=== PATIENT | male | born 1985 | race African-American/Black ===

== ENCOUNTER 2017-08-07 11:32 | Outpatient (CLI) ==
[2015-09-17 15:12] VITALS: BMI 24.9
== END 2017-08-07 11:33 | disposition home or self-care (01) ==
LOC: LAB 11:32
PROVIDERS: ATTEND Physician Assistant
DX: D64.9 Anemia, unspecified (principal); R74.8 Abnormal levels of other serum enzymes
CPT/HCPCS: 36415; 80053; 82607; 82728; 82746; 83516; 83540; 83550; 85027; 86038; 86705; 86706; 86709; 86803; 87340

== ENCOUNTER 2017-10-26 13:51 | Emergency (ER) ==
[2017-10-26 13:53] VITALS: BP 145/97; TEMP 97.9; BMI 25.6
--- NOTE | 2017-10-26 15:49 | ED.PDOC ---
General ED Provider: Dr. JOCELYN VELASQUEZ Chief Complaint: Tooth Problem Stated Complaint: Severe lt sided tooth ache and facial swelling . Has fracture lt upper molar with pain in upper gingival and adjoining facial region Time Seen by Physician: 15:30 Mode of Arrival: Walk-In Information Source: Patient Exam Limitations: No limitations Primary Care Provider: FARSHAD BRO Nursing and Triage Documentation Reviewed and Agree: Yes Reviewed sepsis parameters & appropriate labs ordered?: Yes Does patient meet sepsis criteria?: No System Inflammatory Response Syndrome: Not Applicable Sepsis Protocol: For patient's 13 years and over: Temp is 96.8 and below OR 101 and greater Pulse >90 BPM Resp >20/minute Acutely Altered Mental Status Are patient's symptoms suggestive of a new infection, such as: -Pneumonia -Skin, Soft Tissue -Endocarditis -UTI -Bone, Joint Infection -Implantable Device -Acute Abdominal Infection -Wound Infection -Meningitis -Blood Stream Catheter Infection -Unknown EENT Complaint Exam - Dental/Oral Complaint/Exam Mechanism of Injury: No known trauma Onset/Duration: 3 days Symptoms Are: Worse Timing: Constant Initial Severity: Moderate Current Severity: Moderate Location: Lt Facial and upper molar Character: Reports: Dull, Aching, Throbbing Aggravating: Reports: Cold, Chewing Alleviating: Reports: None Associated Signs and Symptoms: Reports: Swelling, Foul taste in mouth Related History: Reports: Previous tooth problem. Denies: Similar episode Cardiac Risk Factors: Reports: None Dental/Oral Surgical History: Reports: None Tooth Findings: Present: Percussion tenderness, Abcess, Cellulitis Cervical Lymphadenopathy Present: No Facial Swelling Present: Yes Bleeding Present: No Oropharynx Findings: Absent: Clots, Active bleeding Septal Hematoma: No Foreign Body Present: No Dysphagia Present: No Drooling Present: No Asymmetrical Tonsillar Swelling Present: No Uvula Midline: Yes Makenzie-tonsillar Fluctuence: No Trismus Present: No Palatal Petechiae Present: No Scarlatinaform Rash Present: No Lesions: Absent: Lip, Gums, Tongue, Buccal Mucosa, Pharynx Exanthem: Absent: Lip, Gums, Tongue, Buccal Mucosa, Pharynx Vesicles: Absent: Lip, Gums, Tongue, Buccal Mucosa, Pharynx Differential Diagnoses: Dental Abcess, Dental Caries, Fractured Tooth Review of Systems - Review Of Systems Constitutional: Reports: No symptoms Eyes: Reports: No symptoms Ears, Nose, Mouth, Throat: Reports: No symptoms, Mouth pain (Dental Pain / toothache/fractured tooth) Respiratory: Reports: No symptoms Cardiac: Reports: No symptoms GI: Reports: No symptoms : Reports: No symptoms Musculoskeletal: Reports: No symptoms Skin: Reports: No symptoms Neurological: Reports: No symptoms Endocrine: Reports: No symptoms Hematologic/Lymphatic: Reports: No symptoms All Other Systems: Reviewed and Negative Past Medical History - Past Medical History Previously Healthy: Yes Endocrine: Reports: None Cardiovascular: Reports: None Respiratory: Reports: None Hematological: Reports: None Gastrointestinal: Reports: None Genitourinary: Reports: None Neuro/Psych: Reports: None Musculoskeletal: Reports: None Cancer: Reports: None - Surgical History General Surgical History: Reports: Unknown - Family History Family History: Reports: Unknown - Social History Smoking Status: Current some day smoker, Light tobacco smoker Hx Substance Use: No Alcohol Screening: Occasionally Physical Exam - Physical Exam Appearance: Well-appearing Ill-appearing: None Pain Distress: Moderate Eyes: SOLITARIO, EOMI, Conjunctiva clear ENT: Ears normal, Nose normal, Oropharynx normal, Erythema (upper gum line with gingival edema/abscess formation and fractured lt upper molar) Neck: Supple Respiratory: Airway patent, Breath sounds clear, Breath sounds equal, Respirations nonlabored Cardiovascular: RRR, Pulses normal, No rub, No murmur GI/: Soft, Nontender, No masses, Bowel sounds normal, No Organomegaly Musculoskeletal: Normal strength, ROM intact, No edema, No calf tenderness Skin: Warm Neurological: Sensation intact, Motor intact, Reflexes intact, Cranial nerves intact, Alert, Oriented Psychiatric: Affect appropriate, Mood appropriate Interpretation - Radiology Interpretation Radiology Results: Negative Exam Interpreted: CT Scan Xray Comments: lt maxillary swelling suggestive of tooth 12 infection Critical Care Note - Critical Care Note Total Time (mins): 0 Course - Course Hematology/Chemistry: 10/26/17 16:14 10/26/17 16:14 Vital Signs: Temp Pulse Resp BP Pulse Ox 10/26/17 13:51 97.9 F 78 20 145/97 H 97 Departure - Departure Time of Disposition: 16:30 Disposition: HOME SELF-CARE Discharge Problem: Dental abscess, Fractured tooth Instructions: Dental Abscess (ED) Condition: Fair Pt referred to PMD for follow-up: Yes IPMP verified?: No Additional Instructions: Take meds as directed Analgesics for pain control as directed Take antibiotics Follow up PCP and dentist in next week Prescriptions: Hydrocodone Bit/Acetaminophen [[place] 5-325] 1 each PO Q6HR PRN #10 tablet PRN Reason: Dental Pain Amoxicillin/Potassium Clav [Augmentin 875-125 mg Tab] 1 tab PO Q12HR #20 tablet Ibuprofen [Motrin] 600 mg PO Q6H PRN #40 tablet PRN Reason: Toothache Allergies/Adverse Reactions: Allergies No Known Allergies Allergy (Verified 10/26/17 13:53) Home Medications: Ambulatory Orders Amoxicillin/Potassium Clav [Augmentin 875-125 mg Tab] 1 tab PO Q12HR #20 tablet 10/26/17 Hydrocodone Bit/Acetaminophen [[place] 5-325] 1 each PO Q6HR PRN #10 tablet Ibuprofen [Motrin] 600 mg PO Q6H PRN #40 tablet 10/26/17 Disposition Discussed With: Patient, Family
[2017-10-26] MEDS ORDERED: NORCO 5-325 PO STA (15:55)
[2017-10-26] MEDS ORDERED: AUGMENTIN 875-125 MG TAB PO STA (15:55)
--- NOTE | 2017-10-26 16:27 | CT ---
EXAM: CT scan of the facial bones without contrast HISTORY: Left facial swelling, no pain, dental infection TECHNIQUE: Imaging of the facial bones was performed without contrast. Axial images and coronal and sagittal reconstructions were provided for interpretation. FINDINGS: There is left-sided facial swelling seen at the level of the maxilla. This is seen on axi al image number 35 and axial image number 32. Periapical lucencies are seen along the root of tooth number 12. No definite fluid collections are seen. There is mucosal thickening seen within the maxil roosevelt sinuses. The ethmoid air cells and sphenoid sinus and frontal sinus appear clear. No abnormal air-fluid levels are seen. The mastoid air cells are clear. IMPRESSION: Mild soft tissue swelling seen along the left maxilla most likely due to odontogenic inf ection. Periapical lucent changes and probable active infection of the tooth number 12 is identified . No definite fluid collections are seen.
== END 2017-10-26 16:30 | disposition home or self-care (01) ==
LOC: ED 13:51
DX: K04.7 Periapical abscess without sinus (principal); S02.5XXA Fracture of tooth (traumatic), initial encounter for closed fracture; F17.210 Nicotine dependence, cigarettes, uncomplicated
CPT/HCPCS: 36415; 80053; 85025; 99283

== ENCOUNTER 2018-10-14 20:03 | Emergency (ER) | payer MEDICAID, OTHER ==
[2018-10-14 20:05] VITALS: BP 133/87; TEMP 98; BMI 25.2
[2018-10-14] MEDS ORDERED: BOOSTRIX IM ONE (20:14)
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
[2018-10-14] MEDS ORDERED: TORADOL IM STA (20:34)
--- NOTE | 2018-10-14 20:48 | CT ---
EXAM: CT head without contrast HISTORY: Headache/injury COMPARISON: CT head 03/23/[address] maxillofacial TECHNIQUE: Serial axial images of the brain were obtained from the skull base to the vertex without IV contrast. FINDINGS: The ventricles, cisterns and sulci are normal. The warren-white matter junction is maintain ed. No midline shift or mass is identified. There is no abnormal intra or extra-axial fluid collect ion. The paranasal sinuses and mastoid air cells are clear. The osseous calvarium is intact. IMPRESSION: No acute intracranial abnormality or hemorrhage.
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
== END 2018-10-14 21:35 | disposition home or self-care (01) ==
LOC: ED 20:03
DX: S09.90XA Unspecified injury of head, initial encounter (principal); S80.212A Abrasion, left knee, initial encounter; S80.211A Abrasion, right knee, initial encounter; Y04.0XXA Assault by unarmed brawl or fight, initial encounter; F17.210 Nicotine dependence, cigarettes, uncomplicated
CPT/HCPCS: 90471; 90715; 96372; 99283